=== PATIENT | male | born 1945 | race Caucasian/White ===

== ENCOUNTER 2016-10-04 17:06 | Inpatient (IN) | payer OTHER ==
[~2016-10-04] VITALS: Ht 180.3 cm; Wt 90.0 kg
[~2016-10-04 17:06] MED LIST: GLU850 PO; LAC PO; LEV500PM IV; LEVEMIR100 U/M1 SC; LIPI20 PO; PLA75 PO; THERAGRAN-M1 TA4 PO; UNA1I IV; VITC PO; ZES20 PO
--- NOTE | 2016-10-04 17:13 | NUR ---
PATIENT TRIAGED AND SENT TO BED 9
--- NOTE | 2016-10-04 17:46 | NUR ---
PT CAME TO ED TODAY W/ COMPLAINT OF DIABETIC WOUND TO RIGHT FOOT X 1 MONTH. ON VISUAL INSPECTION, PT NOTED TO HAVE BLACK, NECROTIC SKIN PRESENT TO FIRST 3 DIGITS OF RIGHT FOOT FOOT, SPREADING DOWN TO DORSAL AND PLANTAR SIDES OF THE FOOT. 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 PT NOTED TO HAVE OPEN SKIN W/ ULCERATION PRESENT TO AREA AROUND AMPUTATION. PT DENIES ANY PAIN AT REST, REPORTS PAIN IS PRESENT ON PALPATION OF THE FOOT. PT DENIES ANY OTHER COMPLAINTS PT IS A&O X 4, BREATHING EVEN AND UNLABORED, WITH NO VISUAL SIGNS OF ACUTE OR RESP DISTRESS NOTED. MSE COMPLETED BY DR QUINTANILLA.
--- NOTE | 2016-10-04 17:51 | NUR ---
LAB AT BEDSIDE FOR BLOOD DRAW.
[2016-10-04 18:10] LABS: BASOPHIL % 0.8 % (0-2); PLATELET COUNT 410 x10^3mcL (130-400); RED CELL DISTRIBUTION WIDTH 14.5 % (11.5-14.5)
[2016-10-04 18:19] LABS: CALCIUM 8.8 mg/dL (8.5-10.1); CARBON DIOXIDE 28.6 mmol/L (21-32); CHLORIDE SERUM 100 mmol/L (98-107); CREATININE SERUM 0.9 mg/dL (0.7-1.3); GFR1 > 60 mL/min; GLUCOSE SERUM 129 mg/dL (74-106); POTASSIUM SERUM 4.2 mmol/L (3.5-5.1); SODIUM SERUM 136 mmol/L (136-145)
[2016-10-04 18:24] LABS: ALKALINE PHOSPHATASE 100 U/L (46-116); ALT/SGPT 64 U/L (16-63); AST/SGOT 53 U/L (15-37); BILIRUBIN TOTAL 0.62 mg/dL (0.20-1.00); TOTAL PROTEIN, SERUM 7.4 g/dL (6.4-8.2)
[2016-10-04 18:25] LABS: ALBUMIN 2.6 g/dL (3.4-5.0)
[2016-10-04] MEDS ORDERED: ASCORBIC ACID500 M1 PO (19:03)
[2016-10-04] MEDS ORDERED: CLOPIDOGREL75 M1 PO (19:03)
[2016-10-04] MEDS ORDERED: LEVEMIR FLEX100 U/M1 SC (19:03)
[2016-10-04] MEDS ORDERED: ATORVASTATIN CA20 M1 PO (19:03)
[2016-10-04] MEDS ORDERED: ZESTRIL20 MG PO (19:04)
[2016-10-04] MEDS ORDERED: METFORMIN HCL850 MG PO (19:05)
[2016-10-04] MEDS ORDERED: PROSTATE PO (19:06)
[2016-10-04] MEDS ORDERED: DIGESTIVE PROB250 MG PO (19:06)
--- NOTE | 2016-10-04 19:13 | NUR ---
REPORT GIVEN TO ROSALINDA Bruce RN, AND CARE ENDORSED FOR THIS PT.
--- NOTE | 2016-10-04 19:52 | NUR ---
PHOTOS OF RIGHT FOOT WOUND TAKEN AND PLACED IN PT CHART.
--- NOTE | 2016-10-04 20:00 | NUR ---
REPORT GIVEN TO LAKESHIA PETE TO ASSUME CARE OF PT.
--- NOTE | 2016-10-04 20:09 | NUR ---
PT TRANSFERRED TO [facility] WITH RN KRISTIN AND EMT EMELY AT THE BEDSIDE. PT PLACED ON CM, A&OX4,NO ACUTE DISTRESS NOTED, RESP EVEN AND UNLABORED, TRANSFERRED WITHOUT INCIDENCE.
--- NOTE | 2016-10-04 20:20 | NUR ---
PT RECEIVED FROM ED BY PRIMARY NURSE LAKESHIA. AAOX2 (PERSON, PLACE AND BIRTHDATE). ABLE TO FOLLOW SIMPLE COMMANDS. NO SOB NOTED. DENIES CHEST PAIN/PRESSURE, NSR ON THE MONITOR. DENIES ABDOMINAL DISCOMFORT. W/ PERIODS OF FORGETFULNESS. W/ RIGHT FOOT WOUND, FOUL ODOR NOTED. W/ LEFT FOOT LATERAL ASPECT DRY SKIN AND DRY SCAB. W/ DECREASED SENSATION ON BILATERAL FEET. SIDE RAILS UPX2. CALL LIGHT ON REACH. PRIMARY NURSE LAKESHIA AT BEDSIDE FOR CONTINUITY OF CARE.
[2016-10-04 20:27] LABS: CHOLESTEROL/HDL RATIO 3.5
[2016-10-04 20:32] VITALS: BP 145/64
[2016-10-04 20:35] LABS: T3 TOTAL 0.95 ng/mL
[2016-10-04 20:36] VITALS: Ht 180.3 cm; Wt 90.0 kg
[2016-10-04 20:36] LABS: FREE T4 1.59 ng/dL (0.76-1.46); FREE THYROXINE INDEX 3.6 ug/dL (1.4-4.5); T4(THYROXINE) 10.2 ug/dL (4.7-13.3)
--- NOTE | 2016-10-04 22:44 | NUR ---
PT HAS A OPEN WOUND TO THE LT FOOT FOUL SMELL AND GRAGRENE,IV INFUSING WELL WITH THE SITE PATENT AND INTACT,KEPT CLEAN AND DRY TO TOUCH,MADE COMFORTABLE IN BED,HOB,WILL CONTINUE TO MONITOR.
--- NOTE | 2016-10-04 23:15 | NUR ---
PT WAS SEEN BY THE PODIATRY RESIDENTS AND RT FOOT WAS COVERED WITH DRESSING,NO PAIN RERORTED AT THIS TIME,WILL CONTINUE TO MONITOR.
[2016-10-05 06:02] VITALS: BP 101/54
--- NOTE | 2016-10-05 06:39 | NUR ---
PT HAD A RESTING NIGHT V/S STABLE,PT FORGETFUL AT TIMES,MADE COMFORTABLE IN BED,KEPT CLEAN AND DRY TO TOUCH,WILL CONTINUE TO MONITOR.
--- NOTE | 2016-10-05 07:40 | NUR ---
PATIENT AWAKE AND ORIENTED TO PERSON, PLACE AND WITH FORGETFULNESS AT TIMES. DENIED PAIN AT THIS TIME. IVF NS VIA H/L TO LEFT HAND. ANOTHER SL TO LEFT AC. TELE # 8 SHOWS NORMAL SINUS RHYTHMS. RIGHT FOOT WITH DRESSING INTACT. CALL LIGHT WITHIN REACH. SIDE RAILS UP X3. BED ALARM WAS ON.
--- NOTE | 2016-10-05 08:38 | NUR ---
DR. BULLOCK AND THE TEAM WERE MAKING ROUND TO SEE THE PATIENT. THE CARE PLAN WAS EXPLAINED TO THE PATIENT, AND THE PATIENT AGREED WITH THE PLAN.
[2016-10-05 08:51] VITALS: BP 114/44
[2016-10-05 13:33] VITALS: BP 122/62; BP 122/620
--- NOTE | 2016-10-05 14:43 | NUR ---
REC'D ORDER FROM DR. GUAJARDO TO TRANSFER PT TO MED-S[facility]. REMOVED TELE.
--- NOTE | 2016-10-05 15:15 | NUR ---
DR. GUAJARDO-RESIDENT WAS INFORMED OF THE PATIENT'S BLOOD CULTURE RESULT. CONTINUE THE ABX PER DOCTOR.
[2016-10-05 16:52] LABS: microscopic required? YES; urine erythrocyte TRACE (NEGATIVE)
--- NOTE | 2016-10-05 17:00 | NUR ---
THE PATIENT WAS AGITATED, ATTEMPTED TO PULL OUT IV H/L AND WANTED TO WALK OUT OF THE HOSPITAL BY HIMSELF. DR. GUAJARDO -RESIDENT WAS INFORMED OF THIS SITUATION AND CAME TO THE ROOM TO TALK TO THE PATIENT.
[2016-10-05 17:54] VITALS: BP 104/38
[2016-10-05 17:56] VITALS: BP 118/61
--- NOTE | 2016-10-05 17:58 | NUR ---
DR. GUAJARDO-RESIDENT WAS NOTIFIED THAT THE PATIENT REFUSED INSULIN COVERAGE FOR BS 172 AND PO MEDS INCLUDING METFORMIN 850 MG AND LACTINEX 2 TABS.
--- NOTE | 2016-10-05 18:40 | NUR ---
AT 1825, DR. NEWMAN-PODIATRIC RESIDENT WAS AT BEDSIDE DOING SOME EXTERNAL DEBRIDEMENT AND CHANGING THE DRESSING FOR THE PATIENT. THE PATIENT CAME DOWN AND RESTING IN BED AFTER THAT.
--- NOTE | 2016-10-05 19:26 | NUR ---
THE PATIENT WAS TRANSFERRED TO ROOM 238B; REPORT WAS GIVEN TO VIOLETA DEVRIES.
--- NOTE | 2016-10-05 19:35 | NUR ---
PT. TRANSFERRED FROM [facility]. RECEIVED REPORT FROM YANCI PAINTING. PT. ORIENTED TO ROOM. IVF NS INFUSING AT 110CC/HR. BED LOW LAYING, CALL LIGHT WITHIN REACH. BED ALARM ON.
[2016-10-05 20:34] VITALS: BP 140/63
--- NOTE | 2016-10-06 02:23 | NUR ---
PT. RESTING COMFORTABLY. DENIES NEED FOR PAIN MEDICATION THUS FAR. DRSG TO RLE INTACT, SEROUS DRAINAGE NOTED. IVF INFUSING WELL. CALL LIGHT REMAINS WITHIN REACH.
[2016-10-06 05:13] VITALS: BP 133/61
--- NOTE | 2016-10-06 05:55 | NUR ---
PT. SLEEPING AT THIS TIME. ORIENTED TO SELF AND PLACE. PT. AGITATED WHEN AWAKENED TO DO ACCU CHECK. DRSG TO RLE. INTACT BUT SEROUS DRAINAGE NOTED THROUGHOUT. IVF INFUSING WELL. CALL LIGHT WITHIN REACH. BED LOW LAYING W/ ALARM ON. WILL ENDORSE PT. CARE TO INCOMING NURSE.
[2016-10-06 06:02] LABS: BASOPHIL % 0.6 % (0-2); PLATELET COUNT 302 x10^3mcL (130-400)
[2016-10-06 06:26] LABS: CARBON DIOXIDE 27.6 mmol/L (21-32); CHLORIDE SERUM 104 mmol/L (98-107); CREATININE SERUM 0.8 mg/dL (0.7-1.3); GFR1 > 60 mL/min; GLUCOSE SERUM 111 mg/dL (74-106); MAGNESIUM 1.6 mg/dL (1.8-2.4); PHOSPHOROUS 3.1 mg/dL (2.5-4.9); POTASSIUM SERUM 3.7 mmol/L (3.5-5.1); SODIUM SERUM 135 mmol/L (136-145)
[2016-10-06 06:32] LABS: RED CELL DISTRIBUTION WIDTH 14.7 % (11.5-14.5)
[2016-10-06 09:00] VITALS: BP 95/58
--- NOTE | 2016-10-06 09:23 | NUR ---
PT ON BED, AWAKE, ALERT, AND ORIENTED. HAS NO COMPLAINT OF PAIN, SOB, OR DIZZINESS. RESPONDS WELL TO QUESTION AND ANSWER. NO DISTRESS NOTED. CLEAR STEFANIA LUNG FIELD, SYMMETRICAL CHEST EXPANSION AND UNLABORED. ACTIVE BOWEL SOUNDS NOTED, NON DISTENDED ABDOMEN. NEW DRESSING IS CDI ON THE RLE. APPLIED BY PODIATRY. SIDE RAILS UP, CALL LIGHT WITHIN REACH WILL CONTINUE TO MONITOR
--- NOTE | 2016-10-06 12:30 | NUR ---
PT'S ACCUCHECK SHOWED 171. PT REFUSED COVERAGE STATING JUST RECHECK IT LATER IT WILL GO DOWN
[2016-10-06 13:03] VITALS: BP 123/57
--- NOTE | 2016-10-06 17:30 | NUR ---
PT'S ACCUCHECK SHOWED 155. PT REFUSED COVERAGE. TO BE MADE AWARE
[2016-10-06 18:55] VITALS: BP 126/33
--- NOTE | 2016-10-06 19:40 | NUR ---
PT. DOZING, INTERMITTENTLY. EASY TO WAKE. ABLE TO FOLLOW COMMANDS, DENIES HEADACHE OR DIZZINESS. SPEECH CLEAR. ORIENTED TO SELF AND PLACE. BREATH SOUNDS CLEAR, DIMINISHED BLL. RESP. EVEN, UNLABORED. NO SOB NOTED. PEDAL PULSE TO LLE MODERATE. NO EDEMA NOTED. RLE W/ DRSG, INTACT. SMALL AMOUNT OF SEROUS DRAINAGE NOTED. IVF NS INFUSING WELL, SITE WNL. FREQUENT ROUNDS PLANNED. BED LOW LAYING W/ ALARM ON. CALL LIGHT WITHIN REACH.
--- NOTE | 2016-10-07 00:35 | NUR ---
PT. DOZING, SNORING. APPEARS COMFORTABLE. DRSG. TO RLE REMAIN INTACT. DENIES NEED FOR PAIN MEDICATION THUS FAR. CALL LIGHT REMAIN WITHIN REACH. BED LOW LAYING WITH ALRM ON.
--- NOTE | 2016-10-07 04:11 | NUR ---
PT. AWAKE, WATCHING TV. DENIES ANY PAIN. DRSG TO RLE REMAINS INTACT. IVF INFUSING WELL. CALL LIGHT WITHIN REACH.
[2016-10-07 06:09] LABS: BASOPHIL % 0.7 % (0-2); PLATELET COUNT 304 x10^3mcL (130-400); RED CELL DISTRIBUTION WIDTH 14.4 % (11.5-14.5)
[2016-10-07 06:49] VITALS: BP 142/61
[2016-10-07 07:03] LABS: ALKALINE PHOSPHATASE 68 U/L (46-116); ALT/SGPT 31 U/L (16-63); AST/SGOT 22 U/L (15-37); BILIRUBIN TOTAL 0.4 mg/dL (0.20-1.00); CALCIUM 7.8 mg/dL (8.5-10.1); CARBON DIOXIDE 24.5 mmol/L (21-32); CHLORIDE SERUM 106 mmol/L (98-107); CREATININE SERUM 0.8 mg/dL (0.7-1.3); GFR1 > 60 mL/min; GLUCOSE SERUM 87 mg/dL (74-106); MAGNESIUM 1.5 mg/dL (1.8-2.4); POTASSIUM SERUM 3.7 mmol/L (3.5-5.1); SODIUM SERUM 140 mmol/L (136-145)
[2016-10-07 07:04] LABS: ALBUMIN 1.8 g/dL (3.4-5.0); TOTAL PROTEIN, SERUM 5.5 g/dL (6.4-8.2)
--- NOTE | 2016-10-07 07:38 | NUR ---
RECEIVED PT LAYING IN BED AWAKE AND ALERT. AAOx2.ID BAND ON AND VERIFIED. IV SITE PATENT AND INFUSING WELL, TUBING LABELLED PROPERLY. INFORMATION BOARD UPDATED. DENIES PAIN AT THIS TIME. NO APPARENT SIGNS OF DISTRESS. DRESSING TO RIGHT FOOT INTACT. CALL LIGHT WITHIN REACH. ENCOURAGED TO CALL FOR ASSISTANCE WHEN NEEDED. WILL CONTINUE TO MONITOR
[2016-10-07 09:09] VITALS: BP 121/61
--- NOTE | 2016-10-07 13:24 | NUR ---
ACCORDING TO LAB POSITIVE FOR MRSA. MOVED TO ROOM 246B. PT RESTING CALMLY WATCHING TV. NO APPARENT SIGNS OF ACUTE DISTRESS NOTED AT THIS TIME. PT STATES THAT HE IS HAVING SOME PAIN ON HIS RIGHT FOOT BUT REFUSING PRN AT THIS TIME. CALL LIGHT WITHIN REACH. ENCOURAGED TO CALL FOR ASSISTACNE WHEN NEEDED. WILL CONTINUE TO MONITOR
[2016-10-07 17:27] VITALS: BP 112/52
--- NOTE | 2016-10-07 19:51 | NUR ---
RECEIVED PT FROM PREVIOUS SHIFT. PT A/OX2. IN NO ACUTE DISTRESS. IV TO L HAND ACCIDENTALLY REMOVED BY PATIENT. INFUSION MOVED TO LAC, PATENT AND INFUSING WELL WITH NO S/S OF INFILTRATION. CALL LIGHT WITHIN REACH, BED IN LOW POSITION. BED ALARM ON. WILL CONTINUE TO MONITOR.
[2016-10-07 20:38] VITALS: BP 150/63
[2016-10-08 05:11] VITALS: BP 158/65
[2016-10-08 06:43] LABS: BASOPHIL % 0.5 % (0-2); PLATELET COUNT 328 x10^3mcL (130-400); RED CELL DISTRIBUTION WIDTH 14.2 % (11.5-14.5)
[2016-10-08 07:03] LABS: CALCIUM 8.1 mg/dL (8.5-10.1); CARBON DIOXIDE 25.2 mmol/L (21-32); CHLORIDE SERUM 104 mmol/L (98-107); CREATININE SERUM 0.8 mg/dL (0.7-1.3); GFR1 > 60 mL/min; GLUCOSE SERUM 95 mg/dL (74-106); MAGNESIUM 1.8 mg/dL (1.8-2.4); SODIUM SERUM 140 mmol/L (136-145)
[2016-10-08 09:09] VITALS: BP 96/59
--- NOTE | 2016-10-08 09:46 | NUR ---
0730 PATIENT ALERT AND ORIENTED X 3, NO COMPLAINT OF PAIN OR SOB, ASSISTED WITH AMBULATION TO RESTROOM, BM WATERY BROWN, URINATED CLEAR YELLOW URINE, RIGHT FOOT DRESSING INTACT, REFUSED ACCUCHEK NEEDLE STICK, LEFT AC IV INTACT, CURRENTLY LYING INB ED HOB ELEVATED BED IN LOW POSITION CALL LIGHT IN APCLE SIDE RAILS UP
--- NOTE | 2016-10-08 12:17 | NUR ---
PATIENT ALERT AWAKE WATCHING TELEVISION, AGREED TO HAVE BS CHECKED BS 159 GAVE REGULAR INSULIN PRESCRIBED, HUNG ANTIBIOTIC, PATIENT LYING HOB ELEVATED BED IN LOW POSITION CALL LIGHT IN APLCE SIDE RAIL UP
[2016-10-08] MEDS ORDERED: BACDS PO (15:05)
[2016-10-08] MEDS ORDERED: LEXAPRO10 MG PO (15:05)
[2016-10-08] MEDS ORDERED: VITC PO (15:06)
[2016-10-08] MEDS ORDERED: THERA TABS1 TAB PO (15:06)
[2016-10-08 15:22] VITALS: BP 96/59
[2016-10-08 17:22] VITALS: BP 132/84
--- NOTE | 2016-10-08 17:36 | NUR ---
1. Recommend CCHO-75 gm diet.
--- NOTE | 2016-10-08 17:36 | NUR ---
Initial Nutrition Assessment Dx: Necrotic Foot PMHx: DM, HTN PSHx: 3 foot debridement (December 2015) Labs: BG 95, WBC 11.6 H, H/H 12/35 L; (10/08) ALB 1.8 L; (10/04) A1C 5.7 Meds: Colace, D50%, Glucophage, humulin R, lactinex, levemir, mag-ox, NaCl IVF, theragran, vitamin C 500 mg daily, zofran Current Diet Order: CCHO-60 gm PO Intakes: (10/05) D: 100%; (10/07) B: 100%, D: 80%; (10/08) B: 100% Ht: 70", 5' 10". Wt: 198 lb, 90 kg. BMI: 27.7 kg/m2 (Overweight) IBW: 166 lb, 75 kg. %IBW: 119%. UBW: 300 lb, 136 kg. Wt Hx: (08/01/16) 211 lb, 96 kg. Age: 71 Y/O M Food Allergies: None Skin: R foot wound. Carlton 17. Edema: None noted GI: Active bowel sounds. Last BM 10/07. 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 Per doctor's progress note 10/07, no acute events overnight, cultures of wound came back with MRSA and P. Mirabilis, zosyn continues, magnesium repleted with mag rider, mild tolerable pain on bottom of R foot, pt following up outpatient with Dr. Nolasco for possible BKA. Pt was seen sitting on chair at bedside during RD visit. Pt reported good appetite here in the hospital, however, lost a lot of weight due to being hungry but not wanting to eat. RD inquired further, however, pt reported unsure further reason on why he lost so much weight. Pt requested for egg salad sandwich or roast beef sandwich for dinner, RD acknowledged, notified [facility] staff to provide. Problem with: N: None. V: None. D: None. C: None. Problems with: Chewing: None. Swallowing: None. Current Appetite: Good Recent Weight Change: -13 lb. % Weight Change: 6% weight loss within 3 months Vitamin/Supplement use: None Diet at Home: Regular Physical Activity: Limited due to wound on foot Education: Pt declined further DM education. RD educated pt on importance of protein in wound healing at this time. Pt verbalizes understanding. 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 Recommend CCHO-75 gm diet. Monitor/Evaluate Goal: PO intakes to meet >75% of estimated needs; Pt to understand importance of protein in wound healing Monitor: PO intakes, tolerance to diet, labs, skin integrity, GI function F/U in 7 days as LOW risk (10/15)
--- NOTE | 2016-10-08 18:58 | NUR ---
PATIENT ALERT AND ORIENTED X 4 NO SIGN OF DISTRESS OR SOB NO PAIN VERBALIED VITALS WNL, NIECE PICKING UP PATIENT VIA PRIVATE VEHICLE, DRESSING RIGHT FOOT INTACT, PATIENT REFUSED BS CHECK, PAPERS SIGNED BY NICATERINA, AND INTSRUCTIONS AND PAPERS GIVEN FOR RETURN TO FACILITY, PATIENT DRESSED AND IN VEHICLE
== END 2016-10-08 18:57 | DRG 264 ==
LOC: ED 17:06 → DU 19:24 → MU 19:24 → DU 20:10 → MU 10-05 16:17
PROVIDERS: Emergency Medicine; Family Medicine; ADMIT Family Medicine
PROC: 0JBQ0ZZ Excision of Right Foot Subcutaneous Tissue and Fascia, Open Approach (ICD-10-PCS; principal; 2016-10-05)
DX: E11.52 Type 2 diabetes mellitus with diabetic peripheral angiopathy with gangrene (principal); I50.41 Acute combined systolic (congestive) and diastolic (congestive) heart failure; N17.0 Acute kidney failure with tubular necrosis; E43 Unspecified severe protein-calorie malnutrition; N39.0 Urinary tract infection, site not specified; E87.1 Hypo-osmolality and hyponatremia; E83.42 Hypomagnesemia; E11.42 Type 2 diabetes mellitus with diabetic polyneuropathy; E11.21 Type 2 diabetes mellitus with diabetic nephropathy; I11.0 Hypertensive heart disease with heart failure; E78.5 Hyperlipidemia, unspecified; D47.3 Essential (hemorrhagic) thrombocythemia; I25.10 Atherosclerotic heart disease of native coronary artery without angina pectoris; N40.0 Benign prostatic hyperplasia without lower urinary tract symptoms; G30.9 Alzheimer's disease, unspecified; F02.80 Dementia in other diseases classified elsewhere, unspecified severity, without behavioral disturbance, psychotic disturbance, mood disturbance, and anxiety; Z79.4 Long term (current) use of insulin; Z68.27 Body mass index [BMI] 27.0-27.9, adult; Z89.421 Acquired absence of other right toe(s); Z79.84 Long term (current) use of oral hypoglycemic drugs
CPT/HCPCS: 82962; 83880; 84439; J0295; J1815; J2405; J2543; J3475; J3490; J7030; Q0092

== ENCOUNTER 2016-10-18 12:23 | Day surgery (SDC) | payer OTHER ==
[~2016-10-18] VITALS: Ht 175.3 cm; Wt 87.7 kg
[~2016-10-18 12:23] MED LIST changes: +ASCORBIC ACID500 M1 PO; +ATORVASTATIN CA20 M1 PO; +BACDS PO; +CLOPIDOGREL75 M1 PO; +DIGESTIVE PROB250 MG PO; +LEVEMIR FLEX100 U/M1 SC; +LEXAPRO10 MG PO; +METFORMIN HCL850 MG PO; +PROSTATE PO; +THERA TABS1 TAB PO; +ZESTRIL20 MG PO
[2016-10-18] MEDS ORDERED: VANCOMYCIN HCL750 MG IV (14:46)
[2016-10-18 14:54] LABS: BASOPHIL % 0.5 % (0-2); RED CELL DISTRIBUTION WIDTH 14.5 % (11.5-14.5)
[2016-10-18 14:55] LABS: CALCIUM 9.1 mg/dL (8.5-10.1); CARBON DIOXIDE 26.3 mmol/L (21-32); CREATININE SERUM 1.4 mg/dL (0.7-1.3); PLATELET COUNT 471 x10^3mcL (130-400); POTASSIUM SERUM 4.5 mmol/L (3.5-5.1)
[2016-10-18 14:59] VITALS: BP 107/71
[2016-10-18 15:00] LABS: BILIRUBIN TOTAL 0.46 mg/dL (0.20-1.00); TOTAL PROTEIN, SERUM 7.6 g/dL (6.4-8.2)
[2016-10-18 15:03] LABS: ALBUMIN 2.6 g/dL (3.4-5.0)
[2016-10-18 15:52] LABS: CHOLESTEROL/HDL RATIO 3.2
[2016-10-18 16:02] LABS: FREE T4 1.08 ng/dL (0.76-1.46); FREE THYROXINE INDEX 3.4 ug/dL (1.4-4.5); T4(THYROXINE) 9.2 ug/dL (4.7-13.3)
[2016-10-18 18:04] VITALS: BP 140/75
[2016-10-18 21:19] VITALS: BP 115/66
[2016-10-19 05:52] VITALS: BP 121/58
[2016-10-19 06:20] LABS: RED CELL DISTRIBUTION WIDTH 14.2 % (11.5-14.5)
[2016-10-19 06:25] LABS: CALCIUM 8.8 mg/dL (8.5-10.1); CARBON DIOXIDE 27.4 mmol/L (21-32); CREATININE SERUM 1.7 mg/dL (0.7-1.3); MAGNESIUM 1.6 mg/dL (1.8-2.4); PHOSPHOROUS 4.3 mg/dL (2.5-4.9); POTASSIUM SERUM 5.1 mmol/L (3.5-5.1)
[2016-10-19 06:30] LABS: PLATELET COUNT 409 x10^3mcL (130-400)
[2016-10-19 07:12] LABS: microscopic required? YES; urine erythrocyte NEGATIVE (NEGATIVE)
[2016-10-19 07:26] LABS: AMPHETAMINE QUAL UR NONE DETECTED (NEG <=1000)
[2016-10-19 10:28] LABS: T3 TOTAL 0.83 ng/mL
[2016-10-19 20:35] VITALS: BP 110/58
[2016-10-20 05:37] VITALS: BP 122/56
[2016-10-20 06:13] LABS: BASOPHIL % 0.4 % (0-2); PLATELET COUNT 358 x10^3mcL (130-400); RED CELL DISTRIBUTION WIDTH 14.1 % (11.5-14.5)
[2016-10-20 06:33] LABS: CALCIUM 8.4 mg/dL (8.5-10.1); CARBON DIOXIDE 25.5 mmol/L (21-32); CREATININE SERUM 1.4 mg/dL (0.7-1.3); MAGNESIUM 1.8 mg/dL (1.8-2.4); PHOSPHOROUS 3.6 mg/dL (2.5-4.9); POTASSIUM SERUM 4.9 mmol/L (3.5-5.1)
[2016-10-20 08:15] VITALS: BP 130/62
[2016-10-20 12:48] VITALS: BP 130/78
[2016-10-20] MEDS ORDERED: BACTRIM1 TAB PO (16:07)
[2016-10-20] MEDS ORDERED: LAC PO (16:08)
[2016-10-20 16:25] VITALS: BP 130/78
[2016-10-20 18:23] VITALS: BP 123/76
== END 2016-10-20 19:34 ==
LOC: ED 12:23 → DU 13:36 → MU 13:36 → ED 13:36 → DU 13:51 → DS 13:51 → DU 14:57 → MU 10-19 09:34 → DU 10-19 09:34 → MU 10-19 09:34 → DS 10-20 19:34
PROVIDERS: Emergency Medicine; Family Medicine; Podiatrist Foot & Ankle Surgery
PROC: 0Y6M0Z0 Detachment at Right Foot, Complete, Open Approach (ICD-10-PCS; principal; 2016-10-19 13:00)
DX: E11.52 Type 2 diabetes mellitus with diabetic peripheral angiopathy with gangrene (principal); N17.0 Acute kidney failure with tubular necrosis; E43 Unspecified severe protein-calorie malnutrition; I42.8 Other cardiomyopathies; E11.621 Type 2 diabetes mellitus with foot ulcer; M86.171 Other acute osteomyelitis, right ankle and foot; E11.40 Type 2 diabetes mellitus with diabetic neuropathy, unspecified; E87.2 Acidosis; E86.0 Dehydration; E78.5 Hyperlipidemia, unspecified; I10 Essential (primary) hypertension; Z79.4 Long term (current) use of insulin
CPT/HCPCS: 80307; 82962; 83880; 84439; 94150; 97110-GP; J1644; J1815; J2405; J2543; J2704; J3010; J3475; J3490; J7030; Q0092